=== PATIENT | female | born 1965 | race American Indian/Alaskan Native ===

== ENCOUNTER 2016-10-07 07:54 | Emergency (ER) | payer OTHER ==
[~2016-10-07] VITALS: Ht 167.6 cm; Wt 90.7 kg
[~2016-10-07 07:54] MED LIST: IBUPROFEN400 MG PO; KEPPRA XR500 MG PO; NEURONTIN100 MG PO; OXYCODONE HCL5 MG PO
[2016-10-07] MEDS ORDERED: ASPIR 8181 MG PO (08:01)
[2016-10-07] MEDS ORDERED: LIPITOR20 MG (08:02)
[2016-10-07] MEDS ORDERED: ACYCLOVIR800 MG PO (08:02)
[2016-10-07] MEDS ORDERED: LISINOPRIL5 MG PO (08:02)
== END 2016-10-07 11:18 | disposition home or self-care (01) ==
LOC: ED 07:54
DX: G40.909 Epilepsy, unspecified, not intractable, without status epilepticus (principal); R51 Headache; Z79.899 Other long term (current) drug therapy
CPT/HCPCS: 51701; 80053; 81001; 82542; 85025; 96360; 96361; 99284; J7030